=== PATIENT | female | born 1955 | race Caucasian/White ===

== ENCOUNTER → 2016-06-08 | Outpatient (CLI) | payer MEDICAID | LOC: BRMIMAGING 10:46 | PROVIDERS: ATTEND Physician Assistant | DX: Z12.31 Encounter for screening mammogram for malignant neoplasm of breast (principal); R10.11 Right upper quadrant pain | CPT/HCPCS: 76705-PO; G0202 ==

== ENCOUNTER → 2018-03-13 | Outpatient (CLI) | payer MEDICAID | LOC: BRMIMAGING 14:34 | PROVIDERS: ATTEND Family Medicine | DX: R91.8 Other nonspecific abnormal finding of lung field (principal); F17.200 Nicotine dependence, unspecified, uncomplicated | CPT/HCPCS: 71046-PO ==

== ENCOUNTER → 2018-06-05 | Outpatient (CLI) | payer MEDICAID, OTHER | LOC: BRMIMAGING 12:49 | PROVIDERS: ATTEND Registered Nurse | DX: F45.8 Other somatoform disorders (principal); Z83.49 Family history of other endocrine, nutritional and metabolic diseases ==